=== PATIENT | female | born 1985 | race African-American/Black ===

== ENCOUNTER 2016-12-13 17:01 | Emergency (ER) | payer MEDICAID ==
[~2016-12-13] VITALS: Ht 167.6 cm; Wt 106.8 kg
[~2016-12-13 17:01] MED LIST: IBUP800T23 PO
[2016-12-13 17:03] VITALS: BP 143/80; PULSE 83; RESP 12; TEMP 98.1; O2SAT 97
[2016-12-13] MEDS ORDERED: AUGM875T PO (18:05)
--- NOTE | 2016-12-13 18:08 | PD ---
HPI . cold for 5 days. Has body aches, ear pain 2 days ago, Chief Complaint: Cold / Flu Symptoms Time Seen by Provider: 18:00 Travel History International Travel<30 days: No Contact w/Intl Traveler<30days: No Traveled to known affect area: No History of Present Illness HPI 31-year-old female without any past medical history here with complaints of cold symptoms for about 5 days. Patient states she had body aches, chills, and ear pain. She does not have a primary care provider therefore she decided to come to the emergency room for further treatment. She is accompanied by her significant other. She denies any recent sick contacts or travel. She denies any chest pain, shortness of breath, nausea, vomiting, diarrhea, abdominal pain. PFSH Past Medical History ?: Not LMP: 11/17/2016 : 2 Para: 1 Social History Alcohol Use: Yes (occassinal) Tobacco Use: No Substance Use: No Allergies-Medications (Allergen,Severity, Reaction): Coded Allergies: No Known Allergies (Verified , 12/13/16) Reported Meds & Prescriptions Reported Meds & Active Scripts Active Augmentin (Amoxicillin-Clavulanate) 875-125 mg Tab 875 Mg PO BID not for use in CrCl <30 ml/min. Review of Systems General / Constitutional: Positive: Chills, No: Fever Eyes: No: Visual changes HENT: Positive: Congestion, Earache, No: Headaches Cardiovascular: No: Chest Pain or Discomfort Respiratory: Positive: Cough, No: Shortness of Breath Gastrointestinal: No: Abdominal Pain Genitourinary: No: Dysuria Musculoskeletal: No: Pain Skin: No Rash Neurologic: No: Weakness Psychiatric: No: Depression Endocrine: No: Polydipsia Hematologic/Lymphatic: No: Easy Bruising Physical Exam Narrative GENERAL: AAO x 3, no acute distress, Well-nourished, well-developed patient. Obese. SKIN: Warm and dry. No visible rashes or bruising. HEAD: Normocephalic and atraumatic. EYES: No scleral icterus. No injection or drainage. EOM intact, PERRLA. No photophobia. ENT: No nasal drainage noted. Mucous membranes pink. Airway patent. Right TM + bulging and erythema. ++ Post nasal drip. NECK: Supple, trachea midline. No JVD. No tenderness or stiffness. CARDIOVASCULAR: Regular rate and rhythm without murmurs, gallops, or rubs. RESPIRATORY: Breath sounds equal bilaterally. No accessory muscle use. No rhonchi or rales. No wheezing. GASTROINTESTINAL: Abdomen soft, non-tender, nondistended. EXTREMITIES: No cyanosis or edema. BACK: Nontender without obvious deformity. No CVA tenderness. PSYCH: AAO x 3, normal affect. Data Data Last Documented VS Vital Signs Date Time Temp Pulse Resp B/P Pulse Ox O2 Delivery O2 Flow Rate FiO2 12/13/16 17:03 98.1 83 12 143/80 97 Room Air MDM Medical Decision Making Medical Screen Exam Complete: Yes Emergency Medical Condition: Yes Medical Record Reviewed: Yes Differential Diagnosis acute OM, acute sinusitis, viral syndrome Narrative Course 31-year-old female without any past medical history here with complaints of cold symptoms for about 5 days. Patient states she had body aches, chills, and ear pain. She does not have a primary care provider therefore she decided to come to the emergency room for further treatment. She is accompanied by her significant other. She denies any recent sick contacts or travel. She denies any chest pain, shortness of breath, nausea, vomiting, diarrhea, abdominal pain. She is seen and examined. Abnormalities noted on physical exam. Right otitis media. Advised Augmentin to cover for OM and sinusitis. Advised patient to look into finding a primary care provider in the area. Discussed that she may also have a vital process that is self limiting. Patient verbalized understanding of instructions, questions were answered, and thanked me for their care. I advised them if their condition worsens, please return to the nearest emergency room for further care. Diagnosis Primary Impression: ROM (right otitis media) Qualified Code: H65.91 - Right non-suppurative otitis media Additional Impressions: Viral infection Elevated blood pressure reading without diagnosis of hypertension Patient Instructions: General Instructions, Hypertension (ED), Otitis Media (DC ) Departure Forms: Tests/Procedures, Work Release Enter return to work date: Dec 14, 2016 Additional Instructions: Take all medications as prescribed. Augmentin can cause diarrhea which is normal. Find a new primary care provider in town. Return to the emergency room if your symptoms return or worsen. Med/Other Pt SpecificInfo: Prescription(s) given Scripts Amoxicillin-Clavulanate (Augmentin)092-272 mg Byf202 Mg PO BID #20 TAB not for use in CrCl <30 ml/min. Prov:Magalie Hall 12/13/16 Disposition: 01 DISCHARGE HOME Condition: Stable Magalie Hall Dec 13, 2016 18:08
== END 2016-12-13 18:28 | disposition home or self-care (01) ==
LOC: NEPB 17:01
DX: H66.91 Otitis media, unspecified, right ear (principal); B34.9 Viral infection, unspecified; R03.0 Elevated blood-pressure reading, without diagnosis of hypertension
CPT/HCPCS: 99283

== ENCOUNTER 2017-05-05 19:02 | Emergency (ER) | payer MEDICAID ==
[~2017-05-05] VITALS: Ht 167.6 cm; Wt 120.0 kg
[~2017-05-05 19:02] MED LIST changes: +AUGM875T PO; -IBUP800T23 PO
[2017-05-05 19:04] VITALS: BP 137/87; PULSE 80; RESP 16; TEMP 97.8; O2SAT 100
--- NOTE | 2017-05-05 19:25 | PD ---
Physical Exam Date Seen by Provider: May 05, 2017 Time Seen by Provider: 19:22 Data Data Last Documented VS Vital Signs Date Time Temp Pulse Resp B/P Pulse Ox O2 Delivery O2 Flow Rate FiO2 05/05/17 19:04 97.8 80 16 137/87 100 Room Air MDM Supervised Visit with SILKE: No Narrative Course 31 YO (12 weeks by dates) F with complaint of abdominal pain x 25 minutes. --vaginal bleeding. 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 Vitals reviewed. Patient seen in triage, awaiting bed placement. Teri Sanchez May 05, 2017 19:25
[2017-05-05] MEDS ORDERED: SODIUM CHLORIDE 0.9% FLUSH 10 ML FLUSH IV FLUSH PRN (20:15)
--- NOTE | 2017-05-05 20:15 | PD ---
HPI Chief Complaint: Abdominal Pain Time Seen by Provider: 20:00 Travel History International Travel<30 days: No Contact w/Intl Traveler<30days: No Traveled to known affect area: No History of Present Illness HPI This a 31-year-old G4, P2,, who is at 12 weeks by dates, who presents today with complaints of abdominal cramping. The patient states that the cramping started about 2 hours ago. The patient denies any fevers, chills. Initially the intake stated she was having vaginal bleeding however she denies any vaginal bleeding at this time. The patient denies any dysuria, urgency, frequency. She states her was an elective and that was during her third . There are no other complaints time of my examination. PFSH Past Medical History Medical History: Denies Significant Hx ?: : 2 Para: 1 Past Surgical History Surgical History: No Previous Surgery Section: Yes Social History Alcohol Use: No (NEVER) Tobacco Use: No Substance Use: No Allergies-Medications (Allergen,Severity, Reaction): Coded Allergies: No Known Allergies (Verified , 05/05/17) Reported Meds & Prescriptions Reported Meds & Active Scripts Active Plus Iron 29-1 mg ( Vit-Iron Carbonyl) 1 Tab Tab 1 Tab PO DAILY Review of Systems Except as stated in HPI: all other systems reviewed are Neg General / Constitutional: No: Fever, Chills HENT: No: Headaches, Lightheadedness Cardiovascular: No: Chest Pain or Discomfort, Palpitations Respiratory: No: Cough, Shortness of Breath Gastrointestinal: Positive: Abdominal Pain (cramping. Patient states it's worse when she gets up from a sitting position. She denies any cramping when standing or resting.), No: Nausea, Vomiting Genitourinary: No: Frequency, Dysuria, Discharge, Vaginal Bleeding Musculoskeletal: No: Weakness, Pain Neurologic: No: Weakness, Dizziness, Headache Physical Exam Narrative GENERAL: Well-nourished, well-developed patient, in no acute respiratory distress. SKIN: Focused skin assessment warm/dry. HEAD: Normocephalic last atraumatic. EYES: No scleral icterus. No injection or drainage. NECK: Supple, trachea midline. CARDIOVASCULAR: Regular rate and rhythm without murmurs, gallops, or rubs. RESPIRATORY: Breath sounds equal bilaterally. No accessory muscle use. GASTROINTESTINAL: Abdomen soft, gravid, nondistended. There is no tenderness to palpation. No rebound or guarding. GENITOURINARY: Normal external genitalia without lesions or erythema. Cervical os was closed fingertip. There is no adnexal masses or pain. There is no blood in the vaginal vault. MUSCULOSKELETAL: No cyanosis, or edema. NEUROLOGICAL: Awake and alert. Cranial nerves II through XII intact. Motor grossly within normal limits. Five out of 5 muscle strength in all muscle groups. Normal speech. Data Data Last Documented VS Vital Signs Date Time Temp Pulse Resp B/P Pulse Ox O2 Delivery O2 Flow Rate FiO2 05/05/17 19:04 97.8 80 16 137/87 100 Room Air Orders Basic Metabolic Panel (Bmp) (05/05/17 20:01) Complete Blood Count With Diff (05/05/17 20:01) Urinalysis - C+S If Indicated (05/05/17 20:01) Iv Access Insert/Monitor (05/05/17 20:01) Ecg Monitoring (05/05/17 20:01) Oximetry (05/05/17 20:01) Sodium Chloride 0.9% Flush (Ns Flush) (05/05/17 20:15) Us Pelvis (Ques Preg/Ectopic) (05/05/17 20:00) Labs Laboratory Tests Test 05/05/17 05/05/17 20:13 20:15 Urine Color YELLOW Urine Turbidity CLEAR Urine pH 6.5 Urine Specific [place] 1.024 Urine Protein TRACE mg/dL Urine Glucose (UA) NEG mg/dL Urine Ketones 10 mg/dL Urine Occult Blood NEG Urine Nitrite NEG Urine Bilirubin NEG Urine Urobilinogen 2.0 MG/DL Urine Leukocyte Esterase NEG Urine RBC 1 /hpf Urine WBC 1 /hpf Urine Squamous Epithelial <1 /hpf Cells Urine Mucus FEW /lpf Microscopic Urinalysis Comment CULT NOT INDICATED White Blood Count 8.9 TH/MM3 Red Blood Count 4.63 MIL/MM3 Hemoglobin 11.1 GM/DL Hematocrit 34.1 % Mean Corpuscular Volume 73.6 FL Mean Corpuscular Hemoglobin 24.1 PG Mean Corpuscular Hemoglobin 32.7 % Concent Red Cell Distribution Width 15.8 % Platelet Count 345 TH/MM3 Mean Platelet Volume 8.2 FL Neutrophils (%) (Auto) 61.9 % Lymphocytes (%) (Auto) 30.4 % Monocytes (%) (Auto) 6.4 % Eosinophils (%) (Auto) 0.8 % Basophils (%) (Auto) 0.5 % Neutrophils # (Auto) 5.5 TH/MM3 Lymphocytes # (Auto) 2.7 TH/MM3 Monocytes # (Auto) 0.6 TH/MM3 Eosinophils # (Auto) 0.1 TH/MM3 Basophils # (Auto) 0.0 TH/MM3 CBC Comment DIFF FINAL Differential Comment Sodium Level 134 MEQ/L Potassium Level 3.5 MEQ/L Chloride Level 103 MEQ/L Carbon Dioxide Level 22.4 MEQ/L Anion Gap 9 MEQ/L Blood Urea Nitrogen 7 MG/DL Creatinine 0.65 MG/DL Estimat Glomerular Filtration 129 ML/MIN Rate Random Glucose 100 MG/DL Calcium Level 8.9 MG/DL MDM Medical Decision Making Medical Screen Exam Complete: Yes Emergency Medical Condition: Yes Differential Diagnosis Threatened versus missed versus cystitis Narrative Course Patient is A positive from previous labs on record. 31-year-old female presents with abdominal pain and 12 at . The patient has an intrauterine by ultrasound. Her cervical os is closed to fingertip. There is no blood in the vault. There is no reported history of vaginal bleeding. Urinalysis is negative for infection. She'll be discharged with a prescription for vitamins. She'll be instructed to follow up with a OB physician. She is instructed to return if she does any increased pain, vaginal bleeding, or any other reason. Diagnosis Primary Impression: Abdominal pain during in first trimester Med/Other Pt SpecificInfo: Prescription(s) given Scripts Vit-Iron Carbonyl ( Plus Iron 29-1 mg)1 Tab Tab1 Tab PO DAILY #30 TAB Ref 0 Prov:Elliott Pinon MD 05/05/17 Disposition: 01 DISCHARGE HOME Condition: Stable Elliott Pinon MD May 05, 2017 20:15
[2017-05-05 20:46] LABS: AUTOMATED NEUTROPHIL # 5.5 TH/MM3 (1.8-7.7); BASOPHIL % 0.5 % (0.0-2.0); EOSINOPHIL # 0.1 TH/MM3 (0-0.4); EOSINOPHIL % 0.8 % (0.0-4.0); HEMATOCRIT 34.1 % (35.0-46.0); HEMO FLAGS DIFF FINAL; LYMPH % 30.4 % (9.0-44.0); LYMPHOCYTE # 2.7 TH/MM3 (1.0-4.8); MEAN CELL VOLUME 73.6 FL (80.0-100.0); MEAN CORPUSCULAR HEMOGLOBIN 24.1 PG (27.0-34.0); MEAN CORPUSCULAR HGB CONC 32.7 % (32.0-36.0); MONO % 6.4 % (0.0-8.0); NEUT % 61.9 % (16.0-70.0); PLATELET COUNT 345 TH/MM3 (150-450); RED BLOOD COUNT 4.63 MIL/MM3 (4.00-5.30); RED CELL DISTRIBUTION WIDTH 15.8 % (11.6-17.2); WHITE BLOOD COUNT 8.9 TH/MM3 (4.0-11.0)
[2017-05-05 20:49] LABS: BLOOD, URINE NEG (NEG); COMMENT (UR) CULT NOT INDICATED; CULTURE IF INDICATED CULT NOT INDICATED; GLUCOSE,URINE NEG (NEG); KETONE, URINE 10 mg/dL (NEG); MUCUS URINE FEW /lpf (OCC); NITRITE,URINE NEG (NEG); PH, URINE 6.5 (5.0-8.5); SQUAMOUS EPITHELIAL CELL URINE <1 /hpf (0-5); URINE COLOR YELLOW (YELLW/STRAW)
[2017-05-05 21:02] LABS: BICARBONATE 22.4 MEQ/L (21.0-32.0); POTASSIUM 3.5 MEQ/L (3.5-5.1)
[2017-05-05] MEDS ORDERED: PREN29TA PO (21:05)
--- NOTE | 2017-05-05 21:10 | RADRPT ---
EXAM DATE/TIME: 05/05/2017 20:22 [facility] COMPARISON: No previous studies available for comparison. INDICATIONS : Abdominal pain. LAB(S): Beta-hCG: MEDICAL HISTORY : . SURGICAL HISTORY : section. ENCOUNTER: Initial ACUITY: 2 weeks PAIN SCORE: 5/10 LOCATION: Bilateral pelvis MEASUREMENTS: UTERUS: 11.7 x 11.0 x 7.1 cm ENDOMETRIAL STRIPE: FREE FLUID: No CROWN RUMP LENGTH: 4.2 cm = 11 WKS 1 DAYS FHR: 157 BPM FINDINGS: UTERUS: There is a 5.4 x 7.8 x 3.5 cm gestational sac. An embryonic pole is seen measuring 4.2 cm correspondi ng to a gestational age of 11 weeks one day. A yolk sac is seen. cardiac activity is seen. RIGHT OVARY: The right ovary is not seen. LEFT OVARY: The left ovary is not seen. MISCELLANEOUS: No free fluid. CONCLUSION: Single live IUP at 11 weeks one day. The ovaries are not seen. The patient declined a transvaginal ul trasound examination. Ortega Desai MD on May 05, 2017 at 21:04 Board Certified Radiologist. This report was verified electronically.
[2017-05-05 22:07] VITALS: BP 132/78; PULSE 80; RESP 17; O2SAT 99
== END 2017-05-05 22:08 | disposition home or self-care (01) ==
LOC: NEPE 19:02
DX: O26.891 Other specified pregnancy related conditions, first trimester (principal); R10.9 Unspecified abdominal pain; Z3A.12 12 weeks gestation of pregnancy
CPT/HCPCS: 76700; 80048; 81001; 84703; 85025; 99284

== ENCOUNTER 2017-10-03 20:30 | Emergency (ER) | payer MEDICAID ==
[~2017-10-03 20:30] MED LIST changes: -AUGM875T PO; +PREN29TA PO
[2017-10-03 20:32] VITALS: BP 135/82; PULSE 96; RESP 16; TEMP 98.8; O2SAT 100
[2017-10-03] MEDS ORDERED: ALBU6.7H INH (21:13)
--- NOTE | 2017-10-03 21:17 | PD ---
HPI Chief Complaint: Cold / Flu Symptoms Time Seen by Provider: 21:08 Travel History International Travel<30 days: No Contact w/Intl Traveler<30days: No Traveled to known affect area: No History of Present Illness HPI 31-year-old black female presents emergency department with complaints of chest pain or shortness of breath associated with a upper respiratory tract infection she's had for the past 4 days. She states it started off with some fever and chills, myalgias, arthralgias and body aches. She states that she had subjective fever and chills, sore throat, cough, posttussive emesis and general malaise. She states now she has some pain in her chest with taking a deep breath or coughing as well as feeling short of breath at times. She denies any anginal chest pain. No nausea vomiting unless she is coughing. No abdominal pain. She had some loose stools. No urine symptoms. She denies any calf tenderness or swelling. She denies tobacco. She does take control. [facility] Past Medical History Medical History: Denies Significant Hx Tetanus Vaccination: < 5 Years ?: Not Past Surgical History Section: Yes Social History Alcohol Use: No (NEVER) Tobacco Use: No Substance Use: No Allergies-Medications (Allergen,Severity, Reaction): Coded Allergies: No Known Allergies (Verified , 05/05/17) Reported Meds & Prescriptions Reported Meds & Active Scripts Active Proventil Hfa 6.7 GM Inh (Albuterol Sulfate) 90 Mcg/Act Aer 2 Puff INH Q4-6H PRN Plus Iron 29-1 mg ( Vit-Iron Carbonyl) 1 Tab Tab 1 Tab PO DAILY Review of Systems Except as stated in HPI: all other systems reviewed are Neg Physical Exam Narrative GENERAL: Well-developed, well-nourished in no acute distress. Nontoxic appearing. Patient's eating potato chips and drinking Mountain Dew on my presentation to the examination room. HEAD: Normocephalic, atraumatic. EYES: Pupils equal round and reactive. Extraocular motions intact. No scleral icterus. No injection or drainage. ENT: TMs clear without erythema. The external auditory canals clear. Nose: clear . Posterior pharynx is pink and moist. No tonsillar edema or exudate. Uvula midline. Airway patent. NECK: Trachea midline.Supple, nontender, moves head freely. No central bony tenderness or spasm. CARDIOVASCULAR: Regular rate and rhythm without murmurs, gallops, or rubs. RESPIRATORY: Clear to auscultation. Breath sounds equal bilaterally. No wheezes , rales, or rhonchi. GASTROINTESTINAL: Abdomen soft, non-tender, nondistended. No hepato-splenomegaly , or palpable masses. No guarding. EXTREMITIES: No clubbing, cyanosis, or edema. No joint tenderness, effusion, or edema noted. No Homans sign. No cords. BACK: Nontender without deformity or crepitance. No flank tenderness. Data Data Last Documented VS Vital Signs Date Time Temp Pulse Resp B/P (MAP) Pulse Ox O2 Delivery O2 Flow Rate FiO2 10/03/17 20:32 98.8 96 16 135/82 (99) 100 Room Air Orders Orders Ed Discharge Order (10/03/17 21:13) MDM Medical Decision Making Medical Screen Exam Complete: Yes Emergency Medical Condition: Yes Medical Record Reviewed: Yes Differential Diagnosis MDM: High Differential diagnoses: Pneumonia, bronchitis, URI, asthma, RAD, legionnaire's disease, SARS, ARDS, influenza, bronchiolitis, RSV,PE,CHF Narrative Course This is URI Patient is resting comfortable. She is no distress. Diagnosis Primary Impression: URI (upper respiratory infection) Qualified Codes: J06.9 - Acute upper respiratory infection, unspecified; B97.89 - Other viral agents as the cause of diseases classified elsewhere Patient Instructions: General Instructions Departure Forms: Tests/Procedures, Work Release Special Instructions: No work 2 days. Additional Instructions: Rest. Increase fluids. Tylenol and Advil. Robitussin-DM. albuterol. Followup with your DrRamón in one week. Return to the ER for any problems. Med/Other Pt SpecificInfo: Prescription(s) given Scripts Albuterol 6.7 GM Inh (Proventil Hfa 6.7 GM Inh) 90 Mcg/Act Aer 2 PUFF INH Q4-6H Y for SHORTNESS OF BREATH, #1 INHALER 0 Refills Prov: Kriss Campbell DO 10/03/17 Disposition: 01 DISCHARGE HOME Condition: Stable Bill Griffith Oct 03, 2017 21:17
== END 2017-10-03 21:47 | disposition home or self-care (01) ==
LOC: NEPK 20:30
DX: J06.9 Acute upper respiratory infection, unspecified (principal); B97.89 Other viral agents as the cause of diseases classified elsewhere; R07.9 Chest pain, unspecified; R06.02 Shortness of breath; R50.9 Fever, unspecified; R05 Cough; M79.1 Myalgia; M25.50 Pain in unspecified joint; R53.81 Other malaise
CPT/HCPCS: 99283